=== PATIENT | female | born 1960 | race Caucasian/White ===

== ENCOUNTER 2021-02-26 09:15 | Outpatient (CLI) | payer OTHER ==
[2021-02-26 10:39] LABS: Hemoglobin 13.2 g/dL (12.0-15.5); Mean Corpuscular Hemoglobin 30.8 pg (27.0-33.0); Mean Corpuscular Volume 93.5 fl (81.6-98.3); Mean Platelet Volume 9.1 fl (7.4-10.4); Platelet Count 399 10x3/uL (150-450); RBC Distribution Width 12.8 % (11.5-14.5); Red Blood Cell (RBC) Count 4.28 10x6/uL (3.90-5.03); White Blood Cell (WBC) Count 8.7 10x3/uL (3.5-10.5)
[2021-02-26 10:47] LABS: Anion Gap 13 mmol/L (10-20); BUN (Urea Nitrogen) 8 mg/dL (9.8-20.1); Calc. Creatinine Clearance 0 mL/min (70-130); Calcium 9.5 mg/dL (7.8-10.44); Carbon Dioxide 26 mmol/L (23-31); Chloride 105 mmol/L (98-107); Glucose 108 mg/dL (80-115); Potassium 4.1 mmol/L (3.5-5.1); Sodium 140 mmol/L (136-145)
[2021-02-26 21:33] LABS: SARS-CoV-2 PCR by NAA Not Detected (NotDetected)
== END 2021-02-26 09:16 | disposition home or self-care (01) ==
LOC: LABBT 09:15
PROVIDERS: ATTEND Surgery
DX: Z01.818 Encounter for other preprocedural examination (principal); Z20.822 Contact with and (suspected) exposure to COVID-19; K31.1 Adult hypertrophic pyloric stenosis
CPT/HCPCS: 80048; 85027; 93005; 93010; U0003; U0005

== ENCOUNTER 2021-03-03 06:03 | Inpatient (IN) | payer OTHER ==
[2021-02-27 11:24] VITALS: BMI 25.4
[2021-03-03] MEDS ORDERED: Fentanyl 100 MCG/2 ML VIAL ONE ×3 (06:24→12:39)
[2021-03-03] MEDS ORDERED: cefOXitin Sodium/Dextrose 2 GM/50 ML BAG ONE (06:29)
[2021-03-03] MEDS ORDERED: Lidocaine 1% w/Epinephrine 1:100K 20 ML VIAL ONE (06:53)
[2021-03-03] MEDS ORDERED: Bupivacaine PF 0.5% 30 ML VIAL ONE (06:53)
[2021-03-03] MEDS ORDERED: Dextrose 50% Abboject 50 ML SYRINGE SLOW IVP PRN (07:29)
[2021-03-03] MEDS ORDERED: Dextrose 5% in Water 1,000 ML IV PRN (07:29)
[2021-03-03] MEDS ORDERED: Promethazine HCl 25 MG/ML VIAL IM PRN (07:29)
[2021-03-03] MEDS ORDERED: diphenhydrAMINE 50 MG/ML VIAL IVP PRN (07:29)
[2021-03-03] MEDS ORDERED: hydrALAZINE 20 MG/ML VIAL SLOW IVP PRN (07:29)
[2021-03-03] MEDS ORDERED: Ondansetron PF 4 MG/2 ML Vial IVP PRN (07:29)
[2021-03-03] MEDS ORDERED: Rocuronium Bromide 10 MG/ML (10ML VIAL) ONE (07:34)
[2021-03-03] MEDS ORDERED: PHENYLEPHRINE-NS 100 MCG/ML 10 ML SYRINGE ONE (07:34)
[2021-03-03] MEDS ORDERED: ePHEDrine 50 MG/ML VIAL ONE (07:34)
[2021-03-03] MEDS ORDERED: Lidocaine 1% PF 5 ML VIAL ONE (07:34)
[2021-03-03] MEDS ORDERED: Glycopyrrolate 0.2 MG/ML 5 ML SYRINGE ONE (07:34)
[2021-03-03] MEDS ORDERED: Dexamethasone 20 MG/5 ML VIAL ONE (07:34)
[2021-03-03] MEDS ORDERED: PROPOFOL 200 MG/20 ML VIAL ONE (07:34)
[2021-03-03] MEDS ORDERED: Ondansetron PF 4 MG/2 ML Vial ONE (07:34)
[2021-03-03] MEDS ORDERED: Morphine 4 MG/ML VIAL SLOW IVP PRN (08:10)
[2021-03-03] MEDS: D5 1/2 NS w/20 mEq KCL 1,000 ML IV SCH ×2 (14:32→21:17)
[2021-03-03] MEDS: Pantoprazole 40 MG VIAL IVP SCH (14:32)
[2021-03-03] MEDS: Hydrocodone-Acetamin 15 ML UDCUP PO PRN (21:16)
[2021-03-04] MEDS: Hydrocodone-Acetamin 15 ML UDCUP PO PRN ×3 (04:36→17:51)
[2021-03-04] MEDS ORDERED: Enoxaparin Sodium 40 MG/0.4 ML SYRINGE SC SCH (09:00)
[2021-03-04] MEDS: Pantoprazole 40 MG VIAL IVP SCH (09:01)
[2021-03-04] MEDS: D5 1/2 NS w/20 mEq KCL 1,000 ML IV SCH (11:37)
[2021-03-04 12:55] LABS: #Lymphocytes 2.1 thou/uL (1.20-3.40); #Monocytes 0.6 thou/uL (0.11-0.59); #Neutrophils 5.5 thou/uL (1.40-6.50); %Eosinophils 0.8 % (0.0-10.0); %Lymphocytes 25.1 % (21.0-51.0); %Neutrophils 66.5 % (42.0-75.0); Hemoglobin 12.7 g/dL (12.0-16.0); Mean Corpuscular HGB CONC 33.8 g/dL (32.0-36.0); Mean Corpuscular Volume 94.8 fL (78.0-98.0); Mean Platelet Volume 7.9 fL (7.4-10.4); RBC Distribution Width 11.7 % (11.5-14.5); Red Blood Cell (RBC) Count 3.96 mill/uL (4.20-5.40); White Blood Cell (WBC) Count 8.3 thou/uL (4.8-10.8)
[2021-03-04 14:18] LABS: Platelet Count 20 thou/uL (130-400)
[2021-03-04 15:15] LABS: Calcium 8.9 mg/dL (7.8-10.44); Chloride 104 mmol/L (98-107); Potassium 3.9 mmol/L (3.5-5.1); Sodium 137 mmol/L (136-145)
[2021-03-04 15:16] LABS: Glucose 107 mg/dL (80-115)
[2021-03-04 15:17] LABS: Anion Gap 13 mmol/L (10-20); Carbon Dioxide 24 mmol/L (23-31)
[2021-03-04 15:19] LABS: Calc. Creatinine Clearance 79 mL/min (70-130)
[2021-03-04 15:20] LABS: BUN (Urea Nitrogen) 9 mg/dL (9.8-20.1)
[2021-03-05] MEDS: D5 1/2 NS w/20 mEq KCL 1,000 ML IV SCH ×2 (01:50→14:36)
[2021-03-05] MEDS: Hydrocodone-Acetamin 15 ML UDCUP PO PRN ×2 (05:55→15:42)
[2021-03-05 06:24] LABS: Mean Corpuscular Volume 94.2 fL (78.0-98.0); Mean Platelet Volume 9.3 fL (7.4-10.4); Platelet Count 14 thou/uL (130-400); RBC Distribution Width 11.8 % (11.5-14.5); Red Blood Cell (RBC) Count 3.95 mill/uL (4.20-5.40); White Blood Cell (WBC) Count 7.3 thou/uL (4.8-10.8)
[2021-03-05 07:35] LABS: #Eosinphils 0.1 thou/uL (0.0-0.7); #Lymphocytes 1.4 thou/uL (1.20-3.40); #Monocytes 0.5 thou/uL (0.11-0.59); #Neutrophils 5.3 thou/uL (1.40-6.50); %Basophils 0.1 % (0.0-1.0); %Eosinophils 0.8 % (0.0-10.0); %Lymphocytes 18.9 % (21.0-51.0); %Monocytes 6.4 % (0.0-10.0); %Neutrophils 73.7 % (42.0-75.0)
[2021-03-05 08:40] LABS: Platelet Count 15 thou/uL (130-400)
[2021-03-05] MEDS: Pantoprazole 40 MG VIAL IVP SCH (10:15)
[2021-03-05] MEDS ORDERED: Dexamethasone 4 MG TAB PO SCH (14:00)
[2021-03-05] MEDS ORDERED: Polyethylene Glycol 3350 17 GM Packet PO SCH (14:15)
[2021-03-05 16:39] LABS: Anion Gap 12 mmol/L (10-20); BUN (Urea Nitrogen) 9 mg/dL (9.8-20.1); Calc. Creatinine Clearance 82 mL/min (70-130); Calcium 8.9 mg/dL (7.8-10.44); Carbon Dioxide 23 mmol/L (23-31); Chloride 101 mmol/L (98-107); Glucose 114 mg/dL (80-115); Potassium 3.8 mmol/L (3.5-5.1); Sodium 132 mmol/L (136-145)
[2021-03-06] MEDS ORDERED: Dexamethasone 4 MG TAB PO SCH ×2 (08:00→10:15)
[2021-03-06 08:10] VITALS: BP 130/82; TEMP 97.8
[2021-03-06] MEDS ORDERED: Polyethylene Glycol 3350 17 GM Packet PO SCH (09:00)
[2021-03-06 09:14] LABS: #Lymphocytes 1.1 thou/uL (1.20-3.40); #Monocytes 0.8 thou/uL (0.11-0.59); #Neutrophils 8.7 thou/uL (1.40-6.50); %Basophils 0.2 % (0.0-1.0); %Eosinophils 0.1 % (0.0-10.0); %Lymphocytes 10.5 % (21.0-51.0); %Monocytes 7.1 % (0.0-10.0); %Neutrophils 82.1 % (42.0-75.0); Hemoglobin 12.6 g/dL (12.0-16.0); Mean Corpuscular HGB CONC 33.2 g/dL (32.0-36.0); Mean Corpuscular Hemoglobin 31.2 pg (27.0-31.0); Mean Platelet Volume 9.1 fL (7.4-10.4); Platelet Count 41 thou/uL (130-400); RBC Distribution Width 11.6 % (11.5-14.5); Red Blood Cell (RBC) Count 4.03 mill/uL (4.20-5.40); White Blood Cell (WBC) Count 10.6 thou/uL (4.8-10.8)
[2021-03-06] MEDS: Pantoprazole 40 MG VIAL IVP SCH (10:33)
[2021-03-06] MEDS: Hydrocodone-Acetamin 15 ML UDCUP PO PRN (11:05)
[2021-03-07] MEDS ORDERED: Dexamethasone 4 MG TAB PO SCH (08:00)
== END 2021-03-06 14:11 | disposition home or self-care (01) | DRG 327 ==
LOC: SDC 06:03 → SURG A 07:30
PROVIDERS: ADMIT Surgery; ATTEND Surgery
PROC: 0D164ZA Bypass Stomach to Jejunum, Percutaneous Endoscopic Approach (ICD-10-PCS; principal; 2021-03-03)
PROC: 008Q4ZZ Division of Vagus Nerve, Percutaneous Endoscopic Approach (ICD-10-PCS; 2021-03-03)
PROC: 0DB64ZZ Excision of Stomach, Percutaneous Endoscopic Approach (ICD-10-PCS; 2021-03-03)
PROC: 8E0W4CZ Robotic Assisted Procedure of Trunk Region, Percutaneous Endoscopic Approach (ICD-10-PCS; 2021-03-03)
PROC: 30233R1 Transfusion of Nonautologous Platelets into Peripheral Vein, Percutaneous Approach (ICD-10-PCS; 2021-03-05)
DX: K31.1 Adult hypertrophic pyloric stenosis (principal); D69.3 Immune thrombocytopenic purpura; E78.5 Hyperlipidemia, unspecified; F17.210 Nicotine dependence, cigarettes, uncomplicated; Z85.3 Personal history of malignant neoplasm of breast; Z85.41 Personal history of malignant neoplasm of cervix uteri; Z90.710 Acquired absence of both cervix and uterus; Z90.10 Acquired absence of unspecified breast and nipple; Z87.11 Personal history of peptic ulcer disease; Z79.899 Other long term (current) drug therapy
CPT/HCPCS: 36415; 36430; 80048; 85025; 85060; 86850; 86900; 86901; 88307; 94760; C9113; J0694; J1100; J1650; J2270; J2405; J2704; J3010; J3480; J3490; J8540; P9035; S0020

== ENCOUNTER 2023-03-07 00:45 | Inpatient (IN) | payer BC, OTHER ==
[2023-03-07 01:19] LABS: #Basophils 0.1 thou/uL (0.0-0.2); #Eosinphils 0.3 thou/uL (0.0-0.7); #Monocytes 1.4 thou/uL (0.11-0.59); #Neutrophils 7.5 thou/uL (1.40-6.50); %Basophils 0.6 % (0.0-1.0); %Eosinophils 2.4 % (0.0-10.0); %Lymphocytes 33.4 % (21.0-51.0); %Neutrophils 53.2 % (42.0-75.0); Hematocrit 39.4 % (36.0-47.0); Hemoglobin 13.6 g/dL (12.0-16.0); Mean Corpuscular HGB CONC 34.5 g/dL (32.0-36.0); Mean Corpuscular Hemoglobin 31.1 pg (27.0-31.0); Mean Corpuscular Volume 90.2 fl (78.0-98.0); Platelet Count 442 10x3/uL (130-400); RBC Distribution Width 12.6 % (11.5-14.5); Red Blood Cell (RBC) Count 4.37 mill/uL (4.20-5.40); White Blood Cell (WBC) Count 14.1 10x3/uL (4.8-10.8)
[2023-03-07 01:41] LABS: ALT (SGPT) 16 U/L (8-55); AST (SGOT) 12 U/L (5-34); Albumin 4.3 g/dL (3.4-4.8); Alkaline Phosphatase 144 U/L (40-110); Anion Gap 16 mmol/L (10-20); BUN (Urea Nitrogen) 10 mg/dL (9.8-20.1); Bilirubin, Total 0.3 mg/dL (0.2-1.2); Calc. Creatinine Clearance 0 mL/min (70-130); Calcium 9.6 mg/dL (7.8-10.44); Carbon Dioxide 25 mmol/L (23-31); Chloride 103 mmol/L (98-107); Estimated GFR 97; Globulin 2.8 g/dL (2.4-3.5); Glucose 118 mg/dL (80-115); Potassium 3.5 mmol/L (3.5-5.1); Protein, Total 7.1 g/dL (5.8-8.1); Sodium 140 mmol/L (136-145)
[2023-03-07 01:51] LABS: Troponin I Less than 0.010 ng/mL (< 0.028)
[2023-03-07] MEDS ORDERED: Aspirin Chewable 81 MG TAB ONE (03:03)
[2023-03-07 03:35] VITALS: BMI 25.4
[2023-03-07] MEDS ORDERED: hydrALAZINE 20 MG/ML VIAL SLOW IVP PRN (03:49)
[2023-03-07] MEDS ORDERED: Acetaminophen 325 MG TAB PO PRN (03:50)
[2023-03-07] MEDS ORDERED: Ondansetron ODT 4 MG TAB PO PRN (03:50)
[2023-03-07] MEDS ORDERED: Senokot S 8.6-50 MG TAB PO PRN (03:50)
[2023-03-07] MEDS ORDERED: Calcium Carbonate 500 MG ChewTAB PO PRN (03:50)
[2023-03-07 04:24] LABS: Troponin I Less than 0.010 ng/mL (< 0.028)
[2023-03-07] MEDS: Nicotine 14 MG PATCH TD SCH (05:05)
[2023-03-07] MEDS ORDERED: Famotidine 20 MG TAB ONE (08:15)
[2023-03-07] MEDS: Polymyxin B Sulf/Trimethoprim 10 ML OPHTH DROPS R EYE SCH ×9 (08:35→17:08)
[2023-03-07] MEDS: Tobramycin 0.3% Ophth Susp 5 ml Bottle R EYE SCH ×15 (08:35→23:12)
[2023-03-07] MEDS ORDERED: Cyclopentolate 1% Opth Drop 2 ML BOT R EYE SCH (09:00)
[2023-03-07] MEDS ORDERED: Famotidine 20 MG TAB PO SCH (09:00)
[2023-03-07] MEDS ORDERED: Polymyxin B Sulf/Trimethoprim 10 ML OPHTH DROPS R EYE SCH (09:00)
[2023-03-07] MEDS ORDERED: Iopamidol-370 76% 500 ML MDV (1 ML CHARGE) ONE (09:33)
[2023-03-07 09:56] LABS: Troponin I Less than 0.010 ng/mL (< 0.028)
[2023-03-07] MEDS ORDERED: Lorazepam 1 MG TAB PO SCH (11:15)
[2023-03-07] MEDS ORDERED: Lorazepam 1 MG TAB ONE (11:19)
[2023-03-07 17:55] LABS: Amphetamine Not Detected (NotDetected); Barbiturates Screen Not Detected (NotDetected); Benzodiazepine Screen Detected (NotDetected); Cocaine Metabolite Screen Not Detected (NotDetected); Methadone Not Detected (NotDetected); Methamphetamine Not Detected (NotDetected); Opiate Screen Not Detected (NotDetected); Oxycodone Screen Not Detected (NotDetected); Phencyclidine (PCP) Not Detected (NotDetected); THC/Cannabinoid Screen Not Detected (NotDetected); Tricyclic Screen Not Detected (NotDetected)
[2023-03-07] MEDS: Atorvastatin Calcium 40 MG TAB PO SCH (20:44)
[2023-03-07] MEDS: Ciprofloxacin 0.3% Ophth Soln 2.5 ml Bottle R EYE SCH (20:48)
[2023-03-07] MEDS ORDERED: Atorvastatin Calcium 40 MG TAB PO SCH (21:00)
[2023-03-08] MEDS: Tobramycin 0.3% Ophth Susp 5 ml Bottle R EYE SCH ×14 (03:22→20:41)
[2023-03-08] MEDS: Nicotine 14 MG PATCH TD SCH (04:51)
[2023-03-08 06:37] LABS: #Basophils 0.1 thou/uL (0.0-0.2); #Eosinphils 0.2 thou/uL (0.0-0.7); #Monocytes 1.1 thou/uL (0.11-0.59); #Neutrophils 7.4 thou/uL (1.40-6.50); %Basophils 0.5 % (0.0-1.0); %Eosinophils 1.4 % (0.0-10.0); %Lymphocytes 25.2 % (21.0-51.0); %Monocytes 9.6 % (0.0-10.0); %Neutrophils 62.8 % (42.0-75.0); Hematocrit 39.5 % (36.0-47.0); Hemoglobin 13.2 g/dL (12.0-16.0); Mean Corpuscular HGB CONC 33.4 g/dL (32.0-36.0); Mean Corpuscular Hemoglobin 31.4 pg (27.0-31.0); Mean Corpuscular Volume 93.8 fl (78.0-98.0); Mean Platelet Volume 9.2 fL (7.4-10.4); Platelet Count 437 10x3/uL (130-400); RBC Distribution Width 12.9 % (11.5-14.5); Red Blood Cell (RBC) Count 4.21 mill/uL (4.20-5.40); White Blood Cell (WBC) Count 11.7 10x3/uL (4.8-10.8)
[2023-03-08 07:06] LABS: Anion Gap 14 mmol/L (10-20); BUN (Urea Nitrogen) 10 mg/dL (9.8-20.1); Calc. Creatinine Clearance 90 mL/min (70-130); Calcium 9.6 mg/dL (7.8-10.44); Carbon Dioxide 26 mmol/L (23-31); Cardiac Risk 6.8 (Less than 4.5); Chloride 102 mmol/L (98-107); Cholesterol 223 mg/dl (< 200 Desired); Estimated GFR 99; Glucose 107 mg/dL (80-115); HDL Cholesterol 33 mg/dL (>60 Neg Risk); LDL Cholesterol, Calculated 159 mg/dL; Magnesium 2.1 mg/dL (1.6-2.6); Potassium 3.2 mmol/L (3.5-5.1); Sodium 139 mmol/L (136-145); Triglycerides 153 mg/dL (Less than 150)
[2023-03-08] MEDS ORDERED: Electrolyte Replacement Protocol 1 EACH FS SCH (07:15)
[2023-03-08] MEDS ORDERED: Potassium Chloride 20 MEQ TAB PO SCH (08:00)
[2023-03-08] MEDS ORDERED: Aspirin 81 mg Enteric Coated Tablet PO SCH ×2 (09:00→17:15)
[2023-03-08] MEDS: Famotidine 20 MG TAB PO SCH ×2 (10:01→21:30)
[2023-03-08] MEDS: Ciprofloxacin 0.3% Ophth Soln 2.5 ml Bottle R EYE SCH ×2 (10:01→21:30)
[2023-03-08 14:39] LABS: Potassium 3.6 mmol/L (3.5-5.1)
[2023-03-08] MEDS ORDERED: Polyvinyl Alcohol 1.4%/Povidone 0.6% Opth Drops R EYE PRN (17:18)
[2023-03-08] MEDS ORDERED: Tetracaine HCl 0.5% Ophth Soln 15 ML Bottle R EYE SCH (17:30)
[2023-03-08] MEDS: VANCOMYCIN 25 MG/ML R EYE SCH ×10 (18:42→21:34)
[2023-03-08] MEDS: TOBRAMYCIN R EYE SCH ×4 (18:43→21:32)
[2023-03-08] MEDS ORDERED: Tetracaine 0.5% PF 4 ML BOT R EYE SCH (20:00)
[2023-03-08] MEDS: Atorvastatin Calcium 40 MG TAB PO SCH (21:30)
[2023-03-08] MEDS: Cyclopentolate 1% Opth Drop 2 ML BOT R EYE SCH (21:30)
[2023-03-09] MEDS: TOBRAMYCIN R EYE SCH ×11 (02:03→15:09)
[2023-03-09] MEDS: VANCOMYCIN 25 MG/ML R EYE SCH ×8 (02:04→15:10)
[2023-03-09 06:05] LABS: Hematocrit 39.7 % (36.0-47.0); Hemoglobin 13.2 g/dL (12.0-16.0); Manual Diff?? YES; Mean Corpuscular HGB CONC 33.2 g/dL (32.0-36.0); Mean Corpuscular Hemoglobin 31.2 pg (27.0-31.0); Mean Corpuscular Volume 93.9 fl (78.0-98.0); Mean Platelet Volume 9.1 fL (7.4-10.4); Platelet Count 411 10x3/uL (130-400); RBC Distribution Width 12.8 % (11.5-14.5); Red Blood Cell (RBC) Count 4.23 mill/uL (4.20-5.40); White Blood Cell (WBC) Count 10.9 10x3/uL (4.8-10.8)
[2023-03-09] MEDS: Nicotine 14 MG PATCH TD SCH (06:06)
[2023-03-09 06:08] LABS: Delete Auto Diff?? YES
[2023-03-09 06:30] LABS: Anion Gap 15 mmol/L (10-20); BUN (Urea Nitrogen) 13 mg/dL (9.8-20.1); Calc. Creatinine Clearance 88 mL/min (70-130); Calcium 9.4 mg/dL (7.8-10.44); Carbon Dioxide 24 mmol/L (23-31); Chloride 103 mmol/L (98-107); Estimated GFR 99; Glucose 107 mg/dL (80-115); Magnesium 2.1 mg/dL (1.6-2.6); Potassium 3.6 mmol/L (3.5-5.1); Sodium 138 mmol/L (136-145)
[2023-03-09 06:35] LABS: Band 1 % (5-11); CellaVision Operator ID LAB.CLH1; Eosinophils 2 % (0-10); Hypochromia SLIGHT = 6-15 cells HPF (0-5); Lymphocytes 39 % (21-51); Monocytes 5 % (0-10); Neutrophil 47 % (42-75); Platelet Adequacy Comment Platelets Increased; Reactive Lymphocytes 5 % (0-10); Total Cell Count 101
[2023-03-09] MEDS ORDERED: Tetracaine HCl 0.5% Ophth Soln 15 ML Bottle R EYE SCH (08:00)
[2023-03-09] MEDS ORDERED: Tetracaine 0.5% PF 4 ML BOT R EYE SCH (08:45)
[2023-03-09] MEDS ORDERED: Aspirin 81 mg Enteric Coated Tablet PO SCH (09:00)
[2023-03-09] MEDS: Ciprofloxacin 0.3% Ophth Soln 2.5 ml Bottle R EYE SCH (09:59)
[2023-03-09] MEDS: Cyclopentolate 1% Opth Drop 2 ML BOT R EYE SCH (09:59)
[2023-03-09] MEDS: Famotidine 20 MG TAB PO SCH (09:59)
[2023-03-09 12:23] VITALS: BP 133/70; TEMP 98.8
== END 2023-03-09 15:58 | disposition home or self-care (01) | DRG 65 ==
LOC: ERS 00:45 → ERHOLD 02:43 → 2SE 15:42 → OBSVTOIN 03-08 17:59
PROVIDERS: ADMIT Student in an Organized Health Care Education/Training Program; ATTEND Family Medicine
DX: I63.81 Other cerebral infarction due to occlusion or stenosis of small artery (principal); G81.91 Hemiplegia, unspecified affecting right dominant side; R47.81 Slurred speech; F17.210 Nicotine dependence, cigarettes, uncomplicated; H16.001 Unspecified corneal ulcer, right eye; K27.9 Peptic ulcer, site unspecified, unspecified as acute or chronic, without hemorrhage or perforation; R29.707 NIHSS score 7; D72.829 Elevated white blood cell count, unspecified; Z71.6 Tobacco abuse counseling; Z85.41 Personal history of malignant neoplasm of cervix uteri; Z85.3 Personal history of malignant neoplasm of breast; Z88.8 Allergy status to other drugs, medicaments and biological substances; Z91.048 Other nonmedicinal substance allergy status; Z79.899 Other long term (current) drug therapy; Z90.13 Acquired absence of bilateral breasts and nipples; Z90.710 Acquired absence of both cervix and uterus; Z98.890 Other specified postprocedural states
CPT/HCPCS: 36415; 70450; 70496; 70498; 70551; 71045; 72125; 72131; 72170; 80048; 80053; 80061; 80306; 83735; 84484; 85025; 93005; 93306; G0378; Q9967

== ENCOUNTER 2024-05-23 12:50 | Emergency (ER) | payer BC, OTHER | END 2024-05-23 13:42 | disposition home or self-care (01) | LOC: ERS 12:50 | DX: I10 Essential (primary) hypertension (principal); F17.210 Nicotine dependence, cigarettes, uncomplicated; Z85.3 Personal history of malignant neoplasm of breast; Z79.01 Long term (current) use of anticoagulants; Z79.82 Long term (current) use of aspirin; Z79.899 Other long term (current) drug therapy | CPT/HCPCS: 99283 ==